=== PATIENT | female | born 1990 | race Hispanic/Latino ===

== ENCOUNTER 2021-04-23 05:36 | Day surgery (SDC) | payer MEDICAID ==
[2021-04-22 17:19] LABS: BASOPHILS % (AUTO) 0.8 % (0.0-5.0); EOSINOPHILS % (AUTO) 2.9 % (0.0-8.0); HEMATOCRIT 35.9 % (36-48); LYMPHOCYTES % (AUTO) 39.2 % (21.0-51.0); MEAN CORPUSCULAR HEMOGLOBIN 32.1 pg (27.0-33.0); MEAN CORPUSCULAR HGB CONC 34.3 g/dL (32.0-36.0); MEAN CORPUSCULAR VOLUME 93.7 fL (79-99); MONOCYTES % (AUTO) 6.4 % (3.0-13.0); NEUTROPHILS % (AUTO) 48.2 % (40.0-77.0); PLATELET COUNT (AUTO) 352 K/uL (130-400); RED BLOOD CELL COUNT(AUTO) 3.83 MIL/uL (4.00-5.50); WHITE BLOOD COUNT (AUTO) 7.3 K/uL (4.8-10.8)
[2021-04-22 17:21] VITALS: BP 124/76
[~2021-04-23] VITALS: Ht 157.5 cm; Wt 90.8 kg
[2021-04-23] VITALS (17 sets, daily range): BP systolic 104–117; BP diastolic 59–79
[2021-04-23] MEDS ORDERED: LACTATED RINGERS 1000ML 1,000 ML IV ONE (06:01)
[2021-04-23] MEDS ORDERED: FENTANYL CITRATE PF 50 MCG/1 ML 2ML VIAL ONE (06:48)
[2021-04-23] MEDS ORDERED: LIDOCAINE PF 100MG/5ML (2%) SYRINGE 5ML ONE (06:48)
[2021-04-23] MEDS ORDERED: PROPOFOL 10 MG/ML 20ML VIAL IV ONE (06:48)
[2021-04-23] MEDS ORDERED: OXYTOCIN 10 USP UNITS/ML ONE ×2 (07:07)
[2021-04-23] MEDS ORDERED: PHENYLEPHRINE HCL 10 MG/ML 1ML VIAL IV ONE (07:15)
[2021-04-23] MEDS ORDERED: 0.9%NACL 10ML VIAL ONE (07:15)
== END 2021-04-23 09:00 | disposition home or self-care (01) ==
LOC: DAH 05:36
PROVIDERS: ATTEND Obstetrics & Gynecology
DX: O03.4 Incomplete spontaneous abortion without complication (principal); Z20.822 Contact with and (suspected) exposure to COVID-19; Z79.899 Other long term (current) drug therapy
CPT/HCPCS: 36415; 59812; 84703; 85025; 86850; 86900; 86901; 87635; A4215; A4221; A4222; A4223; A4315; A4351; A4649; A4663; A7002; C9803; J2370; J2590 ×2; J3010; J3490 ×2; J7120; J2001; J2704

== ENCOUNTER 2025-04-19 15:08 | Emergency (ER) | payer SELFPAY ==
[~2025-04-19] VITALS: Ht 157.5 cm; Wt 85.7 kg
[2025-04-19 16:05] LABS: IMMATURE GRANULOCYTE ABSOLUTE 0.05 K/uL (0-1); NUCLEATED RED BLOOD CELLS 0.0 % (0.0-0.19); PLATELET COUNT (AUTO) 313 K/uL (130-400); RED BLOOD CELL COUNT(AUTO) 5.01 MIL/uL (4.00-5.50); RED CELL DISTRIBUTION WIDTH 13.0 % (11.0-15.5); WHITE BLOOD COUNT (AUTO) 10.6 K/uL (4.8-10.8)
[2025-04-19 16:16] LABS: CREATININE 1.1 mg/dL (0.5-1.0); GLOMERULAR FILTR. RATE CALC 67.0 mL/min (>90); GLUCOSE,RANDOM 96.0 mg/dL (70-105); SODIUM SERUM 137.0 mmol/L (136-145); UREA NITROGEN, BLOOD 10.0 mg/dL (7-18)
[2025-04-19 16:18] VITALS: BP 119/79; PULSE 84; RESP 19; TEMP 98.8; O2SAT 100
[2025-04-19 16:37] LABS: APPEARANCE,URINE CLOUDY (CLEAR); GLUCOSE, URINE (UA) NEGATIVE (NEGATIVE); LEUKOCYTE ESTERASE ,URINE 75 Leu/uL (NEGATIVE); NITRATE,URINE NEGATIVE (NEGATIVE); OCCULT BLOOD,URINE LARGE (NEGATIVE)
[2025-04-19 16:41] LABS: ADD UA MICROSCOPIC YES
[2025-04-19 16:47] LABS: SARS-CoV-2, RNA, NAAT NEGATIVE SARS CoV-2 (NEGATIVE)
[2025-04-19 16:49] LABS: SQUAMOUS EPITHELIAL CELL,UR MOD /HPF (0-2)
[2025-04-19 16:55] LABS: INFLUENZA TYPE A Negative For Type A (NEGATIVE); INFLUENZA TYPE B Negative For Type B (NEGATIVE)
--- NOTE | 2025-04-19 17:47 | ERN ---
ED Note History of Present Illness Stated Complaint: DIARRHEA, HEADACHE Chief Complaint: Diarrhea Time Seen by MD: 15:29 Time Seen by Midlevel: 15:33 Dictation: 34 Year old female with no past medical history coming in with complaints of having diarrhea and a headache. Patient states diarrhea she has had it for two days. Patient states with the last thing she last night was tamales. Vomiting, chest pain, chest discomfort. Allergies: Coded Allergies: No Known Allergies (Unverified Allergy, Unknown, 04/22/21) Home Meds No Active Prescriptions or Reported Meds Past Medical History Past Medical History: No Pertinent History Surgical History: None Review of System Dictation Constitutional: Negative for fever,chills, and weight loss Eyes: Negative for injury, pain,redness, and discharge ENT: Negative for injury,pain or swelling Cardiovascular: Negative for chest pain, palpitations, and edema Respiratory: Negative for shortness of breath, cough, and wheezing, Abdomen/GI: Diarrhea Back: Negative for injury and pain : Negative for injury, bleeding and discharge MS/Extremity: Negative for injury and deformity Skin: Negative for rash, and discoloration Neuro: Negative for headache, weakness, numbness, tingling, and seizure Psych: Negative for suicide ideation, homicidal ideation, and hallucinations Review of Systems: was completed Initial Vital Sign VS Vital Signs Date Time Temp Pulse Resp B/P (MAP) Pulse Ox O2 Delivery O2 Flow Rate FiO2 04/19/25 15:09 97.9 85 16 105/71 100 Room Air 04/19/25 16:18 0 21 Physical Exam Dictation General: awake, alert, NAD Head/Face: Normocephalic, atraumatic Eyes: PERRL, EOMI, vision at baseline ENT: oral cavity clear, TMs clear, no signs of infection Neck: Trachea midline, supple, no nuchal rigidity Cardiovascular: RRR, normal S1/S2, No MRGs, no JVD Respiratory: CTAB, no respiratory distress, No rales or wheezes Abdomen: Soft, non-tender, non-distended, normal bowel sounds, no guarding or rebound. Skin: Warm, dry, normal turgor, no rash MS/Extremity: Pulses equal, no cyanosis, neurovascular intact, FROM Neuro: COAx4, GCS 15, strength 5/5, CN 2-12 intact, normal cerebellar exam, normal gait, Psych: Normal behavior, mood, and affect normal Results (Laboratory/Radiology) Laboratory/Radiology Laboratory Tests Test 04/19/25 15:54 04/19/25 16:21 04/19/25 16:27 White Blood Count 10.6 K/uL (4.8-10.8) Red Blood Count 5.01 MIL/uL (4.00-5.50) Hemoglobin 16.0 g/dL (12.0-16.0) Hematocrit 47.6 % (36-48) Mean Corpuscular Volume 95.0 fL (79-99) Mean Corpuscular Hemoglobin 31.9 pg (27.0-33.0) Mean Corpuscular Hemoglobin Concent 33.6 g/dL (32.0-36.0) Red Cell Distribution Width 13.0 % (11.0-15.5) Platelet Count 313 K/uL (130-400) Mean Platelet Volume 9.6 fL (7.5-10.5) Immature Granulocyte % (Auto) 0.5 % (0-1) Neutrophils (%) (Auto) 76.1 % (40.0-77.0) Lymphocytes (%) (Auto) 14.7 % (21.0-51.0) L Monocytes (%) (Auto) 8.0 % (3.0-13.0) Eosinophils (%) (Auto) 0.3 % (0.0-8.0) Basophils (%) (Auto) 0.4 % (0.0-5.0) Neutrophils # (Auto) 8.1 K/uL (1.8-7.7) H Lymphocytes # (Auto) 1.6 K/uL (1.0-4.8) Monocytes # (Auto) 0.9 K/uL (0.1-1.0) Eosinophils # (Auto) 0.03 K/uL (0.00-0.70) Basophils # (Auto) 0.04 K/uL (0.00-0.20) Absolute Immature Granulocyte (auto 0.05 K/uL (0-1) Nucleated Red Blood Cells 0.0 % (0.0-0.19) Sodium Level 137 mmol/L (136-145) Potassium Level 3.9 mmol/L (3.5-5.1) Chloride Level 101 mmol/L (101-111) Carbon Dioxide Level 28 mmol/L (21-32) Blood Urea Nitrogen 10 mg/dL (7-18) Creatinine 1.1 mg/dL (0.5-1.0) H Glomerular Filtration Rate Calc 67 mL/min (>90) Random Glucose 96 mg/dL (70-105) Total Calcium 9.1 mg/dL (8.5-10.1) Urine Color YELLOW (YELLOW) Urine Appearance CLOUDY (CLEAR) H Urine pH 5.5 (5.0-8.0) Urine Specific [place] 1.031 (1.001-1.031) Urine Protein 20 mg/dL (NEGATIVE) H Urine Glucose (UA) NEGATIVE mg/dL (NEGATIVE) Urine Ketones 5 mg/dL (NEGATIVE) H Urine Occult Blood LARGE (NEGATIVE) H Urine Nitrate NEGATIVE (NEGATIVE) Urine Bilirubin NEGATIVE mg/dL (NEGATIVE) Urine Urobilinogen 0.2 mg/dL (0.2-1.0) Urine Leukocyte Esterase 75 Tory/uL (NEGATIVE) H Urine RBC 11-25 /HPF (0-1) H Urine WBC 6-10 /HPF (0-1) H Urine Squamous Epithelial Cells MOD /HPF (0-2) Urine Transitional Epithelial Cells RARE /HPF (None Seen) Urine Bacteria None /HPF (None Seen) Urine HCG, Qualitative NEGATIVE (NEGATIVE) Influenza Type A Antigen Negative For Type A Influenza Type B Antigen Negative For Type B SARS-CoV-2, RNA, NAAT NEGATIVE SARS CoV-2 Labs Reviewed?: Yes ED Course ED Course Orders Procedure Category Date Status Time Cbc With Differential LAB 04/19/25 Complete 15:44 Basic Metabolic Panel LAB 04/19/25 Complete 15:44 Covid Rna Naat LAB 04/19/25 Complete 15:44 Influenza Type A & B, LAB 04/19/25 Complete Rapid 15:44 Acetaminophen 500mg PHA 04/19/25 Complete Tab (Tylenol 500mg T 16:00 Ketorolac PHA 04/19/25 Complete Tromethamine 15mg/Ml 16:00 Urinalysis Profile LAB 04/19/25 Complete 16:21 Culture Urine BAR 04/19/25 In Process 16:42 ,Urine Test LAB 04/19/25 Complete 17:13 Current Medications Medications (Trade) Dose Ordered Sig/Raven Route PRN Reason Start Time Stop Time Status Last Admin Dose Admin Acetaminophen (TYLenol 500MG TAB) 1,000 mg ONCE ONCE PO 04/19/25 16:00 04/19/25 16:01 DC 04/19/25 16:13 Ketorolac Tromethamine (toRADol) 15 mg ONCE ONCE IM 04/19/25 16:00 04/19/25 16:01 DC 04/19/25 16:12 Vital Signs Date Time Temp Pulse Resp B/P (MAP) Pulse Ox O2 Delivery O2 Flow Rate FiO2 04/19/25 16:18 98.8 84 19 119/79 100 Room Air* 0 21 04/19/25 15:09 97.9 85 16 105/71 100 Room Air Medical Decision Making MDM MDM: 34 Year old female with no past medical history coming in with complaints of having diarrhea and a headache. Patient states diarrhea she has had it for two days. Patient states with the last thing she last night was tamales. Vomiting, chest pain, chest discomfort. Lab work looks unremarkable. No evidence of dehydration or electrolyte abnormality. More than likely patient has symptoms related to a gastroenteritis. Discussed findings with the patient educated to keep hydrated and to take [id number] medication for symptomatic control like Imodium if needed. Educated to return to the hospital if she develops any vomiting and unable to keep any fluids or food down. Patient verbalized understanding, answered all questions. Differential diagnosis: Enteritis, dehydration, electrolyte abnormality. Rationale: Tests considered and ordered secondary to shared decision making include: Previous outside records reviewed: Old ER visits. Risk of complication and/or morbidity or mortality of patient management: None Medications-Per medication reconciliation Need for hospitalization: Patient does not meet criteria for hospitalization. Need for emergency major/minor surgery: No There are no social concerns with this patient. Prescription drug management Prescriptions will include symptomatic care Patient's prior external medical records from other ER visits were reviewed by me as indicated. Prior testing and results from previous visits were reviewed. Prior tests were taken into account with medical decision making and resource utilization, independent historian/historians were used to obtain complete medical history. I independently interpreted the test that were performed, results were reviewed by me and considered findings on radiology if ordered. Medical management and examination interpretation discussions were had by me with other qualified healthcare professionals as indicated for the patient's care. DX & DISP Disposition: Discharge Departure Impression: Primary Impression: Diarrhea Condition: Stable Scripts No Active Prescriptions or Reported Meds Additional Instructions: Stay hydrated, avoid any greasy, spicy, fatty foods. Avoid any sugary drinks. Return to the hospital if you develop any nausea or vomiting that you are unable to keep any fluids or foods down. You can take Imodium as needed for your diarrhea. Referrals: MARY DELEON MD (PCP) Time of Disposition: 17:47 I have reviewed the case, and I agree with, Diagnosis and Plan SIA ROSALES CNP Apr 19, 2025 17:47
== END 2025-04-19 18:00 | disposition home or self-care (01) ==
LOC: EDH 15:08
DX: R19.7 Diarrhea, unspecified (principal); R51.9 Headache, unspecified; Z20.822 Contact with and (suspected) exposure to COVID-19
CPT/HCPCS: 99283; 87635; 80048; 85025; 87086; 87804 ×2; 81001; 81025; 36415; 96372; J1885